=== PATIENT | male | born 1945 | race Native Hawaiian/Other Pacific Islander ===

== ENCOUNTER → 2016-09-18 | Outpatient (CLI) | payer MEDICARE, MEDICAID | LOC: YCFC.O 14:25 | PROVIDERS: ATTEND Anesthesiology Pain Medicine | DX: Z79.891 Long term (current) use of opiate analgesic (principal) | CPT/HCPCS: 80354; 80358; 80365; G0479 ==

== ENCOUNTER → 2016-09-19 | Outpatient (CLI) | payer MEDICARE, MEDICAID ==
--- NOTE | 2016-09-20 11:04 | RAD ---
EXAM DESCRIPTION: XR SHOULDER 2 OR MORE VIEWS CLINICAL HISTORY: FALL COMPARISON: None Available. TECHNIQUE: Two views bilateral FINDINGS: Examination of the left shoulder reveals acromioclavicular joint arthritis. Mild glenohumeral joint arthritis is observed. No fracture dislocation is seen. Examination of the right shoulder reveals elevation of the humeral head consistent with a rotator cuff tear. Acromioclavicular joint arthritis is observed. No fracture dislocation is seen. IMPRESSION: Degenerative changes are observed in both shoulders.No fracture dislocation is seen. Electronically signed by: Micah Kendrick MD 09/20/2016 11:01
--- NOTE | 2016-09-20 11:05 | RAD ---
EXAM DESCRIPTION: XR THORACIC SPINE 2 VIEWS CLINICAL HISTORY: THORACIC BACK PAIN COMPARISON: None. TECHNIQUE: Three-view FINDINGS: Mild anterior osteophyte formation is observed throughout the thoracic spine. Mild diffuse osteopenia is observed. The pedicles are intact. No compression injury is detected. IMPRESSION: Degenerative changes in osteopenia are observed. No fracturing is detected. Electronically signed by: Micah Kendrick MD 09/20/2016 11:03
--- NOTE | 2016-09-20 11:05 | RAD ---
EXAM DESCRIPTION: XR CERVICAL SPINE 2 - 3 VIEWS CLINICAL HISTORY: NECK PAIN COMPARISON: None Available. TECHNIQUE: AP/lateral/ open-mouth odontoid FINDINGS: The cervical vertebral bodies are in good AP alignment. Loss of disc height is observed at the C3-4-C5-6 and C6-7 levels. Diffuse anterior osteophyte formation is observed. No soft tissue swelling is observed. Posterior ligamentous calcification is observed in the neck. Diffuse facet joint arthritis is seen. The atlantoaxial junction and dens are normal. IMPRESSION: Degenerative changes are observed. No evidence of fracturing is seen. Electronically signed by: Micah Kendrick MD 09/20/2016 11:02
--- NOTE | 2016-09-21 09:36 | RAD ---
EXAM DESCRIPTION: XR SHOULDER 2 OR MORE VIEWS CLINICAL HISTORY: FALL COMPARISON: None Available. TECHNIQUE: Two views. FINDINGS: Acromioclavicular joint arthritis is observed. Glenohumeral joint degenerative changes are also observed. No fracture dislocation is seen. IMPRESSION: Degenerative changes are observed in the acromioclavicular joint and glenohumeral joint. Electronically signed by: Micah Kendrick MD 09/21/2016 09:34
== END ==
LOC: RAD 13:21
PROVIDERS: ATTEND Nurse Practitioner Family
DX: M54.2 Cervicalgia (principal); M54.6 Pain in thoracic spine; M12.812 Other specific arthropathies, not elsewhere classified, left shoulder; M12.811 Other specific arthropathies, not elsewhere classified, right shoulder; M85.88 Other specified disorders of bone density and structure, other site; W19.XXXA Unspecified fall, initial encounter

== ENCOUNTER → 2016-10-17 | Outpatient (CLI) | payer MEDICARE, MEDICAID | END | disposition home or self-care (01) | LOC: YCFC.O 13:59 | PROVIDERS: ATTEND Nurse Practitioner Family | DX: Z79.891 Long term (current) use of opiate analgesic (principal) | CPT/HCPCS: 80354; 80358; 80365; G0479 ==

== ENCOUNTER → 2016-11-14 | Outpatient (CLI) | payer MEDICARE, MEDICAID | END | disposition home or self-care (01) | LOC: YCFC.O 13:34 | PROVIDERS: ATTEND Anesthesiology Pain Medicine | DX: Z79.891 Long term (current) use of opiate analgesic (principal) ==

== ENCOUNTER → 2016-12-12 | Outpatient (CLI) | payer MEDICARE, MEDICAID | END | disposition home or self-care (01) | LOC: YCFC.O 13:57 | PROVIDERS: ATTEND Nurse Practitioner Family | DX: Z79.891 Long term (current) use of opiate analgesic (principal) ==

== ENCOUNTER → 2017-01-23 | Outpatient (CLI) | payer MEDICARE, MEDICAID | END | disposition home or self-care (01) | LOC: YCFC.O 14:41 | PROVIDERS: ATTEND Anesthesiology Pain Medicine | DX: Z79.891 Long term (current) use of opiate analgesic (principal) ==

== ENCOUNTER → 2017-02-20 | Outpatient (CLI) | payer MEDICARE, MEDICAID | LOC: YCFC.O 13:15 | PROVIDERS: ATTEND Anesthesiology Pain Medicine | DX: Z79.891 Long term (current) use of opiate analgesic (principal) ==

== ENCOUNTER → 2017-02-27 | Outpatient (CLI) | payer MEDICARE, MEDICAID | LOC: RESP 14:05 | PROVIDERS: ATTEND Nurse Practitioner Family | DX: R94.31 Abnormal electrocardiogram [ECG] [EKG] (principal) ==

== ENCOUNTER → 2017-04-03 | Outpatient (CLI) | payer MEDICARE, MEDICAID | END | disposition home or self-care (01) | LOC: YCFC.O 15:59 | PROVIDERS: ATTEND Anesthesiology Pain Medicine | DX: Z79.891 Long term (current) use of opiate analgesic (principal) ==

== ENCOUNTER → 2017-05-01 | Outpatient (CLI) | payer MEDICARE, MEDICAID | END | disposition home or self-care (01) | LOC: YCFC.O 14:45 | PROVIDERS: ATTEND Anesthesiology Pain Medicine | DX: Z79.891 Long term (current) use of opiate analgesic (principal) ==

== ENCOUNTER → 2017-05-29 | Outpatient (CLI) | payer MEDICARE, MEDICAID | END | disposition home or self-care (01) | LOC: YCFC.O 14:45 | PROVIDERS: ATTEND Anesthesiology Pain Medicine | DX: Z79.891 Long term (current) use of opiate analgesic (principal) ==

== ENCOUNTER → 2017-06-26 | Outpatient (CLI) | payer MEDICARE, MEDICAID | END | disposition home or self-care (01) | LOC: YCFC.O 15:11 | PROVIDERS: ATTEND Anesthesiology Pain Medicine | DX: Z79.891 Long term (current) use of opiate analgesic (principal) ==

== ENCOUNTER → 2017-07-23 | Outpatient (CLI) | payer MEDICARE, MEDICAID | END | disposition home or self-care (01) | LOC: YCFC.O 10:05 | PROVIDERS: ATTEND Anesthesiology Pain Medicine | DX: Z79.891 Long term (current) use of opiate analgesic (principal) ==

== ENCOUNTER → 2017-09-14 | Outpatient (CLI) | payer MEDICARE, MEDICAID | END | disposition home or self-care (01) | LOC: LAB.O 10:39 | PROVIDERS: ATTEND Family Medicine | DX: I10 Essential (primary) hypertension (principal); E11.9 Type 2 diabetes mellitus without complications ==

== ENCOUNTER → 2018-09-17 | Outpatient (CLI) | payer MEDICARE, MEDICAID ==
--- NOTE | 2018-09-17 16:27 | CT ---
EXAM DESCRIPTION: Chest w/o Contrast : Computed Tomography. CLINICAL HISTORY: 73 years Male CHEST PAIN COMPARISON: None. TECHNIQUE: Spiral-axial scans at 5 x 5 mm intervals through the lungs and thorax without IV contrast. 2.5 x 5 mm lung algorithm axial reconstructions. Coronal and sagittal 2.0 Mm reconstructions. Total Exam DLP: 533.76 mGy-cm. This exam was performed according to our departmental dose-optimization program which includes automated exposure control, adjustment of the mA and/or kV according to patient size and/or use of iterative reconstruction technique; to reduce radiation dose to as low as reasonably achievable (ALARA). Nodule measurements under 10 mm are given as mean value of 3 axes diameters. FINDINGS: Lungs and large airways: Bibasilar scattered groundglass densities and pleural parenchymal scarring. Also peripheral groundglass densities in the lingula with scarring. No nodules, measuring masses or large infiltrates. Pleural spaces: Scattered focal thickening bilaterally with no bilateral effusion or pneumothorax. Mediastinum and Yancy: Evaluation limited due to lack of IV contrast. Small nodes are unremarkable. Great vessels and Heart: Evaluation limited due to lack of IV contrast. Coronary artery calcifications. Atherosclerotic calcifications in the aortic arch and descending thoracic aorta. Ectasia of the thoracic aorta, distal aortic arch AP diameter is 4.2 cm and compresses the esophagus against the trachea. Proximal arch is 3.9 cm diameter. 3.5 cm diameter of the arch of the origin of the right innominate artery. Soft tissues of neck base, axillae, and chest wall: Evaluation limited due to lack of IV contrast. Small axillary nodes. No soft tissue masses. Upper abdomen: No free air or fluid in the included peritoneal space. Partially visualized cystic mass in the lateral right kidney. Air in the intrahepatic biliary tree. Spleen and adrenal glands are unremarkable. Osseous structures: Spondylosis at multiple levels of the thoracic spine. Arthrosis sternoclavicular joints. Bilateral moderate arthrosis glenohumeral joints. No blastic or lytic lesions. IMPRESSION: 1. Bilateral scattered groundglass densities are most likely not acute with no abnormal nodules or masses. More prominent in the bilateral lower lobes and peripheral left upper lobe. No definite infiltrates. 2. Ectasia of the abdominal aorta but no dissecting aneurysm. Focal enlargement of the proximal descending aorta is compressing the airway partially against the trachea. Electronically signed by: Guanako Person MD 09/17/2018 4:26 PM RN HOME CARE
== END ==
LOC: CT 10:32
PROVIDERS: ATTEND General Practice
DX: R07.9 Chest pain, unspecified (principal); I77.811 Abdominal aortic ectasia

== ENCOUNTER 2019-08-24 14:06 | Inpatient (IN) | payer MEDICARE, MEDICAID ==
--- NOTE | 2019-08-24 14:28 | ED.PDOC ---
History of Present Illness - General Time Seen by Provider: 08/24/19 14:12 Source: patient Exam Limitations: other - poor historian - History of Present Illness Initial Comments: 74-year-old male with a history of prostate cancer currently on hospice presents to the emergency department complaining of lower extremity swelling 1 week. He is complaining of diffuse pain all over and increased pain and bilateral lower extremities due to the swelling with SOB on exertion. He has a history of cancer of the prostate and is unsure if he had metastasis of this or secondary cancer but has had multiple abdominal surgeries and has a chronic Bryan catheter in. He reports that he has been on hospice for the last 4 months and cannot tell me any of his medications or what diagnosis put him on hospice. He is a very poor historian and is unable to give any further history details at this time. Allergies/Adverse Reactions: Allergies NO KNOWN ALLERGY Allergy (Verified 08/24/19 14:52) Home Medications: Ambulatory Orders Glipizide 5 mg PO DAILY #30 tab 08/05/16 Losartan Potassium 25 mg PO DAILY 08/05/16 metFORMIN HCL [Glucophage] 500 mg PO DAILY 08/05/16 Bicalutamide 50 mg PO DAILY 08/24/19 Finasteride 5 mg PO DAILY 08/24/19 Morphine Oral Concentrate [Roxanol Concentrate] 20 mg PO PRN PRN 08/24/19 Morphine Sulfate [Morphine Sulfate ER] 100 mg PO TID 08/24/19 Review of Systems - Review of Systems Constitutional: Denies: chills, fever EENTM: Denies: nose congestion, throat pain Respiratory: States: short of breath. Denies: cough Cardiology: States: edema - BLE. Denies: chest pain Gastrointestinal/Abdominal: Denies: nausea, vomiting Genitourinary: States: other - chronic bryan catheter. Denies: dysuria Musculoskeletal: States: muscle pain - BLE. Denies: back pain Skin: Denies: lesions, rash Neurological: States: weakness - generalized. Denies: headache, numbness Past Medical History (General) - Patient Medical History Hx Seizures: No Hx Stroke: No Hx Dementia: No Hx Asthma: No Hx of COPD: No Hx Cardiac Disorders: No Hx Congestive Heart Failure: No Hx Pacemaker: No Hx Hypertension: Yes Hx Thyroid Disease: No Hx Diabetes: Yes Hx Gastroesophageal Reflux: Yes Hx Renal Disease: No Hx Cancer: Yes - colon Hx of HIV: No Hx MRSA: No - Vaccination History Hx Tetanus, Diphtheria Vaccination: No Hx Influenza Vaccination: Yes - 2016 Hx Pneumococcal Vaccination: No - Social History Hx Tobacco Use: Yes Hx Chewing Tobacco Use: No Hx Alcohol Use: No Hx Substance Use: No Hx Substance Use Treatment: No Hx Depression: No Hx Physical Abuse: No Hx Emotional Abuse: No Hx Suspected Abuse: No - Female History Patient : No Family Medical History - Family History Mother Family History: Unknown Living Status: Physical Exam - Physical Exam General Appearance: Alert, Unkempt Eye Exam: bilateral normal, bilateral conjunctivae pale Ears, Nose, Throat: normal ENT inspection Neck: full range of motion, normal inspection Respiratory: no respiratory distress, no accessory muscle use, other - coarse BS Cardiovascular/Chest: tachycardia, irregularly irregular, other - 3+ pitting edema to BLE Peripheral Pulses: radial,right: 2+, radial,left: 2+, dorsalis pedis,right: 2+, dorsalis pedis,left: 2+ Gastrointestinal/Abdominal: normal bowel sounds, non tender, soft Back Exam: normal inspection, no CVA tenderness Extremity: swelling - from the feet to knees BLE, other - hyperesthesia to light touch BLE Neurologic: alert, depressed affect, other - Oriented x2. Answers some questions and follows commands. Generalized weakness but moves extremities without focal deficits. Skin Exam: warm/dry, pallor Comments: 08/24/19 15:19 EKG Assessment ONCE Vital Signs - 24 hr 08/24/19 08/24/19 14:27 14:28 Temperature 98 F Pulse Rate [ 112 H 112 H Pulse ox] Respiratory 22 22 Rate Blood Pressure 121/91 [R brachial] O2 Sat by Pulse 90 L Oximetry Progress - Progress Progress: 08/24/19 14:15 The patient was seen and evaluated by myself. He is a very poor historian and is unable to give any details about his current diagnoses leading to hospice or any of his medications. On review of his medical records in the computer I was able to find that he had a urinalysis done yesterday that showed a urinary tract infection and the culture is still pending. However there are not many records available and the majority of them are from September 2018 and before, is nothing more recent than this. We have attempted to contact the patient's hospice nurse and attempted to get further information. The patient has also contacted family members and hopefully they are on their way to the ER as well to help provide more information and clarify the current situation. 08/24/19 14:43 The patient's hospice nurse was contacted and states that the patient is currently on Cipro for his UTI. He has morphine as needed for pain and currently takes losartan and metformin. He is also on medication for his prostate as well. To her knowledge the patient's prostate cancer is the diagnosis that he is on hospice for. 08/24/19 1543: Discussed the patient's case with Shyla Worthington with the hospitalist service, agrees the plan for admission. 08/24/19 15:45 Patient recheck all lab and imaging results were discussed with the patient on a plan for treatment with IV Lasix, Lovenox and Cardizem along the plan for admission for continued evaluation and treatment. The patient has voiced understanding and agrees with the plan. 08/24/19 16:04 HR 109 after IV cardizem, will go ahead and dose with oral metoprolol as well and rocephin for pt UTI. Updated Shyla on pt status so far. If his HR stays below 120 after period of monitoring, agrees with plan for floor. 08/24/19 16:39 HR staying 100-120, BP stable and starting to diurese. 08/24/19 17:00 HR remains 100-120- will send to floor with tele. - Results/Orders Results/Orders: 08/24/19 15:30 EKG STAT 08/24/19 15:38 Telemetry ONCE 08/24/19 15:48 ED Intent to Admit Routine Laboratory Results - last 24 hr 08/24/19 14:38 WBC 4.8 RBC 3.59 L Hgb 10.7 L Hct 32.2 L MCV 89.6 MCH 29.8 MCHC 33.3 RDW 16.4 H Plt Count 275 MPV 7.6 Absolute Neuts (auto) 3.10 Absolute Lymphs (auto) 1.00 Absolute Monos (auto) 0.50 Absolute Eos (auto) 0.10 Absolute Basos (auto) 0.10 Neutrophils % 65.3 Lymphocytes % 21.3 Monocytes % 11.0 H Eosinophils % 1.2 Basophils % 1.2 PT 13.1 H INR 1.31 H PTT (SP) 28.5 Sodium 131 L Potassium 4.1 Chloride 97 L Carbon Dioxide 22 Anion Gap 16.1 BUN 21 H Creatinine 0.71 BUN/Creatinine Ratio 29.6 H Random Glucose 158 H Serum Osmolality 268.9 L Calcium 9.0 Magnesium 1.8 Creatine Kinase 96 CK-MB (CK-2) 3.5 CK-MB (CK-2) % Not Reportable Troponin I 0.03 B-Natriuretic Peptide 599.0 H* Chest XR Read by radiology and reviewed by myself: IMPRESSION: Enlarged heart with mild to moderate congestive heart failure. Bilateral perihilar and infrahilar atelectatic change versus infiltrate or pulmonary congestion. Findings increased when correlated with the prior study. Electronically signed by: Mili Villar MD 08/24/2019 3:09 PM [employer] Workstation: [id number] EKG 1527 :Interpreted by myself as atrial fibrillation with RVR rate 152 and a right bundle branch block. Normal axis. No ST elevation and nonspecific ST-T changes. When compared to his previous EKG from 02/27/17 the atrial fibrillation is new however the right bundle branch block was present at that time. Departure - Departure Clinical Impression: Atrial fibrillation with rapid ventricular response, Prostate cancer CHF (congestive heart failure) Qualifiers: Heart failure type: unspecified Heart failure chronicity: acute Qualified Code(s): I50.9 - Heart failure, unspecified UTI (urinary tract infection) Qualifiers: Urinary tract infection type: catheter-associated UTI Indwelling urinary catheter type: indwelling urethral catheter Encounter type: initial encounter Qualified Code(s): T83.511A - Infection and inflammatory reaction due to indwelling urethral catheter, initial encounter Time of Disposition: 15:57 Disposition: Admit Patient Condition: Fair Home Medications: Ambulatory Orders Glipizide 5 mg PO DAILY #30 tab 08/05/16 Losartan Potassium 25 mg PO DAILY 08/05/16 metFORMIN HCL [Glucophage] 500 mg PO DAILY 08/05/16 Bicalutamide 50 mg PO DAILY 08/24/19 Finasteride 5 mg PO DAILY 08/24/19 Morphine Oral Concentrate [Roxanol Concentrate] 20 mg PO PRN PRN 08/24/19 Morphine Sulfate [Morphine Sulfate ER] 100 mg PO TID 08/24/19 Decision To Admit - Decistion To Admit Decision to Admit Reason: Admit from ER Decision to Admit Date: 08/24/19 Decision to Admit Time: 15:30
--- NOTE | 2019-08-24 15:10 | RAD ---
EXAM DESCRIPTION: Chest,1 View CLINICAL HISTORY: 74 years Male LE swelling COMPARISON: August 05, 2016. TECHNIQUE: AP view of the chest was obtained. FINDINGS: Cardiac silhouette is enlarged. Central vessels are increased and indistinct. Elevation right hemidiaphragm. Bilateral perihilar and infrahilar airspace opacities bilaterally. Suspected small bilateral pleural effusions. No pneumothorax. IMPRESSION: Enlarged heart with mild to moderate congestive heart failure. Bilateral perihilar and infrahilar atelectatic change versus infiltrate or pulmonary congestion. Findings increased when correlated with the prior study. Electronically signed by: Mili Villar MD 08/24/2019 3:09 PM [facility]
[2019-08-24] MEDS ORDERED: FUROSEMIDE INJ 40 MG/4 ML VIAL IV ONE ×2 (15:38→23:00)
[2019-08-24] MEDS ORDERED: ENOXAPARIN SODIUM 100 MG/ML SYG SUBCU ONE (15:46)
[2019-08-24] MEDS ORDERED: METOPROLOL TARTRATE 25 MG TAB PO ONE (16:09)
[2019-08-24] MEDS ORDERED: cefTRIAXone SODIUM 1 GM in SODIUM CHL 0.9% 50ML MIN-BAG+ 50 ML IVPB ONE (16:10)
[2019-08-24] MEDS ORDERED: SODIUM CHL 0.9% 50ML MIN-BAG+ 50 ML IVPB ONE (16:12)
[2019-08-24] MEDS ORDERED: cefTRIAXone SODIUM 1 GM VIAL ONE (16:12)
--- NOTE | 2019-08-24 16:38 | HP ---
SUPERVISING PHYSICIAN: Ke Benjamin MD CHIEF COMPLAINT: Swelling in his lower legs with difficulty moving. HISTORY OF PRESENT ILLNESS: This is a 74-year-old male patient who is a poor historian. He has a history of prostate cancer that is on hospice. He presented to the Emergency Room complaining of lower extremity swelling that had been going on for about a week. He has diffuse pain all over that is different than his cancer pain. He said his skin was so tight he felt like it was going to bust. He also had a difficult time bending at his waist and a hard time sitting down. He does have a chronic Quinonez catheter. He has been on hospice for 4 months for cancer. He sees Dr. Davis in [place]. In the Emergency Room, he was given some Lasix and when he was put on the monitor, it was found that he was in atrial fibrillation. His heart rate kept going up into the 130s, but then it would go down in the 100s. He has never had a history of atrial fibrillation. His blood pressure did go up into the 130s and he was given 20 mg of Cardizem IV. He was also given some Rocephin as he recently been treated for a urinary tract infection. His initial vital signs were temperature 98, heart rate 112 to 130, blood pressure 121/91, respiratory rate 20, O2 saturation 90% on room air. Lab showed WBC 4,800, hemoglobin 10.7, hematocrit 32.2. Chemistry showed sodium 131, chloride 97, BUN 21, creatinine 0.71, glucose 183, BNP 599. He does not have a history of any congestive heart failure. Chest x-ray was done and showed enlarged heart with mild to moderate congestive heart failure, bilateral perihilar and infrahilar atelectasis changes versus infiltrate or pulmonary congestion. Findings increased when correlated with prior study. He was also given some metoprolol and I was called for hospital admission. PAST MEDICAL HISTORY: 1. Diabetes mellitus, type 2. 2. Prostate problems. 3. Liver cancer. 4. Benign prostatic hypertrophy. 5. Hypertension. 6. Gastroesophageal reflux disease. PAST SURGICAL HISTORY: 1. Abdominal surgery to his cancer. 2. Back surgery. 3. Brain surgery. OUTPATIENT MEDICATIONS: Per the EMR and awaiting verification. ALLERGIES: NO KNOWN DRUG ALLERGIES. SOCIAL HISTORY: He lives alone. He smokes about 5 cigarettes daily. He denies any ETOH or illicit drug use. REVIEW OF SYSTEMS: GENERAL: Negative for fever, fatigue or weight changes. HEENT: Negative for sinus symptoms, ear pain, vision changes or sore throat. RESPIRATORY: Negative for wheezing, coughing or shortness of breath. CARDIAC: Negative for chest pain, palpitations or tachycardia. EXTREMITIES: Positive for bilateral lower extremity edema that extends to his knee. He also feels like he has abdominal edema. GENITOURINARY: Positive for chronic Quinonez catheter. Negative for hematuria, dysuria or polyuria. MUSCULOSKELETAL: Negative for arthralgias, myalgias. SKIN: Negative for lesions or rashes. NEUROLOGIC: Positive for weakness. Negative for headache or seizures. PHYSICAL EXAMINATION: VITAL SIGNS: Temperature 98.1. Heart rate 115. Blood pressure 119/94. Respiratory rate 22. O2 saturation 94% on 2 liters nasal cannula. It did drop as low as 88%. GENERAL: This is a 74-year-old male patient who is lying in his hospital bed. He is in no acute distress. HEENT: Normocephalic, atraumatic. Pupils are equal and reactive. Oropharynx is clear. NECK: Supple without mass. RESPIRATORY: A few scattered crackles, but otherwise clear to auscultation. CHEST: There is equal rise and fall of the chest with inspiration and expiration. CARDIOVASCULAR: Tachycardic rate and irregular rhythm. Atrial fibrillation on the ekg monitor. GASTROINTESTINAL: Abdomen is soft, nondistended, nontender. Bowel sounds are positive. EXTREMITIES: +4 pedal edema that extend up to the knee. It is pitting and the skin is very tight. NEUROLOGIC: Awake, alert. Cranial nerves II-XII are grossly intact as tested. SKIN: Warm and dry. LABORATORY: Labs and films are as per history of present illness. IMPRESSION: 1. Atrial fibrillation with rapid ventricular response, new onset. 2. Lower extremity edema. 3. Recent urinary tract infection. 4. Elevated BNP with no known diagnosis of congestive heart failure. He also had cardiomegaly per chest x-ray. 5. Diabetes mellitus, type 2. 6. History of prostate cancer, on hospice care. PLAN: The patient has been admitted to the hospital. He is on a Cardizem drip at this time due to his uncontrolled atrial fibrillation with rapid ventricular response. I have ordered an echocardiogram for tomorrow and we will need to transition him to a beta zaire for rate control once his echocardiogram is complete. I have given him an extra dose of Lasix. We will start his home medications as soon as they are verified. I have also started him on Eliquis. He received a dose of Lovenox in the Emergency Room and he will need Eliquis for anticoagulation. I have continued Rocephin for his urinary tract infection. He will have lab and chest x-ray in the morning. We will continue his pain medications from hospice. He will be on blood sugar checks a.c. and h.s. with Humalog sliding scale coverage. We will continue to monitor the patient closely and follow as needed. #[id number] [facility]
[2019-08-24] MEDS ORDERED: ONDANSETRON INJ 4 MG/2 ML VIAL IV PRN (19:23)
[2019-08-24] MEDS ORDERED: SODIUM CHLORIDE 0.9% (FLUSH) 10 ML SYG IV PRN (19:23)
[2019-08-24] MEDS ORDERED: NITROGLYCERIN 0.4 MG 25 EA TAB SL PRN (19:23)
[2019-08-24] MEDS ORDERED: GLUCAGON INJ 1 MG VIAL SUBCU PRN (19:28)
[2019-08-24] MEDS ORDERED: DEXTROSE 50% 25 GM/50 ML SYG IV PRN (19:28)
[2019-08-24] MEDS ORDERED: IV SET AND CAP CHANGE INJ INJ SCH (19:30)
[2019-08-24] MEDS ORDERED: DEXTROSE 5% 100ML 100 ML IVPB ONE (20:14)
[2019-08-24] MEDS ORDERED: diltiaZEM DRIP 125 MG/25 ML VIAL IVPB ONE ×2 (20:15→20:20)
[2019-08-24] MEDS: SODIUM CHLORIDE 0.9% (FLUSH) 10 ML SYG IV SCH (20:20)
[2019-08-24] MEDS ORDERED: diltiaZEM DRIP 125 MG in SODIUM CHLORIDE 0.9% 100ML 100 ML IVPB SCH (20:30)
[2019-08-24] MEDS: MORPHINE SULFATE 100 MG PO SCH (20:48)
[2019-08-24] MEDS: INSULIN LISPRO 100 UNITS/ML PEN SUBCU SCH (20:53)
[2019-08-24] MEDS: APIXABAN 5 MG TAB PO SCH (21:40)
[2019-08-24] MEDS ORDERED: FUROSEMIDE INJ 40 MG/4 ML VIAL ONE (22:40)
[2019-08-24] MEDS: MORPHINE 20 MG/ML PO PRN (22:52)
[2019-08-25] MEDS: MORPHINE 20 MG/ML PO PRN ×3 (03:35→23:23)
[2019-08-25] MEDS: MORPHINE SULFATE 100 MG PO SCH ×4 (06:32→21:01)
[2019-08-25] MEDS: INSULIN LISPRO 100 UNITS/ML PEN SUBCU SCH ×4 (07:20→21:00)
--- NOTE | 2019-08-25 07:38 | RAD ---
EXAM DESCRIPTION: Chest,1 View CLINICAL HISTORY: afib; chf COMPARISON: August 24, 2019 IMPRESSION: Single AP portable upright view of the chest shows enlargement of the cardiac silhouette with mild pulmonary vascular congestion similar to previous exam. Moderate tortuosity the thoracic aorta is stable. Lungs remain hypoaerated with elevation of the right hemidiaphragm. No acute infiltrate or consolidation is seen. Suspect small bilateral pleural effusion similar to previous exam. No pneumothorax. Electronically signed by: Medhat Cuevas MD 08/25/2019 7:36 AM [employer]
[2019-08-25] MEDS ORDERED: SODIUM CHL 0.9% 50ML MIN-BAG+ 50 ML IVPB ONE (08:24)
[2019-08-25] MEDS ORDERED: cefTRIAXone SODIUM 1 GM VIAL ONE (08:25)
[2019-08-25] MEDS: FINASTERIDE 5 MG TAB PO SCH (09:10)
[2019-08-25] MEDS: LOSARTAN POTASSIUM 25 MG TAB PO SCH (09:10)
[2019-08-25] MEDS: metFORMIN HCL 500 MG TAB PO SCH (09:10)
[2019-08-25] MEDS: glipiZIDE 5 MG TAB PO SCH (09:10)
[2019-08-25] MEDS: cefTRIAXone SODIUM 1 GM in SODIUM CHL 0.9% 50ML MIN-BAG+ 50 ML IVPB SCH (09:11)
[2019-08-25] MEDS ORDERED: DEXTROSE 10% 500ML IVPB PRN (11:00)
[2019-08-25] MEDS: APIXABAN 5 MG TAB PO SCH ×2 (11:16→21:00)
[2019-08-25] MEDS: METOPROLOL TARTRATE 25 MG TAB PO SCH ×2 (11:16→16:41)
[2019-08-25] MEDS: BICALUTAMIDE 50 MG PO SCH (11:17)
[2019-08-25] MEDS: SODIUM CHLORIDE 0.9% (FLUSH) 10 ML SYG IV SCH ×2 (11:51→21:02)
[2019-08-25] MEDS ORDERED: METOPROLOL TARTRATE INJ 5 MG/5 ML VIAL IV ONE ×2 (17:15→23:45)
--- NOTE | 2019-08-25 21:18 | PN ---
DATE: 08/25/19 SUPERVISING PHYSICIAN: Julius Cain M.D. SUBJECTIVE: The patient is resting comfortably. Still having some tachycardia. I did initiate a beta zaire and he is showing to be stable, but not a controlled rate at this point. OBJECTIVE: VITAL SIGNS: Temperature 97.6, pulse is ranging anywhere from 80 to 124, blood pressure 125/85, respirations 20, satting 94% on 1 liter nasal cannula. I's and O's are showing a negative balance of 3650. GENERAL: The patient is resting comfortably in the bedside chair. He is alert. Does not appear to be in any acute distress. CHEST: Lung sounds are fairly clear throughout, just diminished towards the bases. HEART: Slightly irregular rate and rhythm but tachycardic. EXTREMITIES: Show continued edema but improved from admission. GENITOURINARY: Quinonez catheter remains in place. NEUROLOGIC: He is still having some overall weakness but no focal motor deficits. He is alert and oriented times three. LABORATORY: White count 4,800, hemoglobin and hematocrit are showing to be stable at 10.1 and 30.2 respectively with differential showing to be without a left shift. Chemistries show a slightly improved sodium at 133, potassium remains normal at 3.8, BUN 8.3. Blood sugar ranges between 92 and 183. Liver functions all within normal limits. Magnesium 1.9. RADIOLOGY: Chest x-ray single view chest this morning per radiology interpretation shows hypoaerated lungs with elevation of the right hemidiaphragm but no acute infiltrate or consolidations. Continues to be suspected small bilateral pleural effusion. No significant changes from previous. ASSESSMENT: 1. Atrial fibrillation with continued rapid ventricular response, now started on a beta zaire, but showing improving rate. 2. Lower extremity edema secondary to congestive heart failure. 3. Congestive heart failure with a moderately reduced ejection fraction as noted on echocardiogram on 08/25 with an ejection fraction reported to be 35 to 40% with an elevated BNP on admission with some exacerbation secondary to #1. 4. Diabetes mellitus type 2, controlled. 5. Recent urinary tract infection with culture showing a preliminary gram negative bacilli with Quinonez catheter chronic but replaced prior to admission with final cultures pending with the patient currently on Rocephin. 6. History of prostate cancer, on hospice care. PLAN: Will continue to work to get a rate control. I have added a beta zaire to him, metoprolol at 25 mg b.i.d. Will utilize IV push as needed. He is on Rocephin for coverage of the urinary tract infection. He remains on Lasix for diuresis. He is also on Eliquis for deep venous thrombosis prophylaxis. He continues on pain management per hospice. He continues to be on sliding scale per protocol. Hopefully will get control of his rate overnight on beta zaire and if showing to be stable, hopefully be able to discharge either tomorrow or the next. Until then will continue to monitor and treat as needed. #[id number] [facility]
[2019-08-25] MEDS ORDERED: FUROSEMIDE INJ 40 MG/4 ML VIAL IV ONE (22:30)
[2019-08-26] MEDS: MORPHINE 20 MG/ML PO PRN (02:00)
[2019-08-26] MEDS ORDERED: SODIUM CHL 0.9% 50ML MIN-BAG+ 50 ML IVPB ONE (08:36)
[2019-08-26] MEDS ORDERED: METOPROLOL TARTRATE 50 MG TAB ONE (08:37)
[2019-08-26] MEDS ORDERED: cefTRIAXone SODIUM 1 GM VIAL ONE (08:38)
[2019-08-26] MEDS: MORPHINE SULFATE 100 MG PO SCH ×3 (09:30→21:30)
[2019-08-26] MEDS: FINASTERIDE 5 MG TAB PO SCH (09:31)
[2019-08-26] MEDS: APIXABAN 5 MG TAB PO SCH ×2 (09:31→21:30)
[2019-08-26] MEDS: glipiZIDE 5 MG TAB PO SCH (09:31)
[2019-08-26] MEDS: metFORMIN HCL 500 MG TAB PO SCH (09:31)
[2019-08-26] MEDS: LOSARTAN POTASSIUM 25 MG TAB PO SCH (09:32)
[2019-08-26] MEDS: cefTRIAXone SODIUM 1 GM in SODIUM CHL 0.9% 50ML MIN-BAG+ 50 ML IVPB SCH (09:33)
[2019-08-26] MEDS: SODIUM CHLORIDE 0.9% (FLUSH) 10 ML SYG IV SCH ×2 (09:34→22:00)
[2019-08-26] MEDS: METOPROLOL TARTRATE 50 MG TAB PO SCH ×2 (09:41→17:27)
[2019-08-26] MEDS: BICALUTAMIDE 50 MG PO SCH (09:41)
[2019-08-26] MEDS: INSULIN LISPRO 100 UNITS/ML PEN SUBCU SCH ×4 (09:46→22:02)
[2019-08-27] MEDS: MORPHINE 20 MG/ML PO PRN (01:59)
[2019-08-27] MEDS: INSULIN LISPRO 100 UNITS/ML PEN SUBCU SCH ×2 (07:19→11:40)
[2019-08-27] MEDS ORDERED: SODIUM CHL 0.9% 50ML MIN-BAG+ 50 ML IVPB ONE (07:33)
[2019-08-27] MEDS ORDERED: cefTRIAXone SODIUM 1 GM VIAL ONE (07:34)
[2019-08-27] MEDS: BICALUTAMIDE 50 MG PO SCH (08:27)
[2019-08-27] MEDS: FINASTERIDE 5 MG TAB PO SCH (08:27)
[2019-08-27] MEDS: METOPROLOL TARTRATE 50 MG TAB PO SCH (08:27)
[2019-08-27] MEDS: metFORMIN HCL 500 MG TAB PO SCH (08:27)
[2019-08-27] MEDS: MORPHINE SULFATE 100 MG PO SCH ×2 (08:27→15:06)
[2019-08-27] MEDS: LOSARTAN POTASSIUM 25 MG TAB PO SCH (08:28)
[2019-08-27] MEDS: glipiZIDE 5 MG TAB PO SCH (08:28)
[2019-08-27] MEDS: APIXABAN 5 MG TAB PO SCH (08:28)
[2019-08-27] MEDS: SODIUM CHLORIDE 0.9% (FLUSH) 10 ML SYG IV SCH (08:28)
[2019-08-27] MEDS: cefTRIAXone SODIUM 1 GM in SODIUM CHL 0.9% 50ML MIN-BAG+ 50 ML IVPB SCH (08:29)
--- NOTE | 2019-08-27 10:16 | PN ---
SUPERVISING PHYSICIAN: Julius Cain M.D. DATE: 08/26/19 SUBJECTIVE: The patient continues to do fairly well. He is not having any complaints. He is still a little tachycardic, but has no chest pains. He still has a little edema to his lower extremities, but notes it is much better than when he was admitted. OBJECTIVE: VITAL SIGNS: He remains afebrile with temperature 98.5. Pulse 94. Blood pressure 120/87. Respirations 20. Saturation 96% on 2 liters nasal cannula. Weight 104.7 kg. GENERAL: The patient is resting comfortably. He appears to be in no acute distress. CHEST: Lung sounds are fairly clear, just diminished towards the bases. HEART: Regular rate and rhythm, showing mild tachycardia between 100 to 105. EXTREMITIES: Continued 1+ edema bilaterally. GENITOURINARY: Quinonez catheter remains in place with no complications. NEUROLOGIC: He is alert and oriented times 3. LABORATORY: Blood sugars are ranging between 92 and 216. ASSESSMENT: 1. Atrial fibrillation with continued rapid ventricular response, now started on a beta zaire, but showing improving rate. 2. Lower extremity edema secondary to congestive heart failure. 3. Congestive heart failure with a moderately reduced ejection fraction as noted on echocardiogram on 08/25/19 with an ejection fraction reported to be 35 to 40% with an elevated BNP on admission with some exacerbation secondary to #1. 4. Diabetes mellitus, type 2, controlled. 5. Recent urinary tract infection with culture showing a preliminary gram negative bacilli with Quinonez catheter chronic but replaced prior to admission with final cultures pending with the patient currently on Rocephin. 6. History of prostate cancer, on hospice care. PLAN: We will continue with beta zaire and increase his metoprolol to 50 mg b.i.d. He has been fairly well controlled. He is diuresing well and remains on Eliquis for thrombolytic prophylaxis. I would anticipate if he continues to be controlled overnight and remains stable, he should be able to discharge back home. Until then, we will continue to monitor and treat as needed. #[id number] [facility]
[2019-08-27 15:32] VITALS: BP 141/75; TEMP 97; O2SAT 95
--- NOTE | 2019-08-29 09:53 | DS ---
SUPERVISING PHYSICIAN: Arlette Cain MD DISCHARGE DIAGNOSIS: 1. Atrial fibrillation with continued rapid ventricular response, now started on a beta zaire, but showing improving rate. 2. Lower extremity edema secondary to congestive heart failure. 3. Congestive heart failure with a moderately reduced ejection fraction as noted on echocardiogram on 08/25/19 with an ejection fraction reported to be 35 to 40% with an elevated BNP on admission with some exacerbation secondary to #1. 4. Diabetes mellitus, type 2, controlled. 5. Recent urinary tract infection with culture showing a preliminary gram negative bacilli with Quinonez catheter chronic but replaced prior to admission with final cultures pending with the patient currently on Rocephin. 6. History of prostate cancer, on hospice care. HISTORY OF PRESENT ILLNESS: This is a 74-year-old male patient who presented to the Emergency Room due to swelling in his lower legs. It had been going on for about a week. He is a poor historian. He has a history of prostate cancer on hospice. He had diffuse pain all over that he said was different than his cancer pain. He said his skin was so tight he felt like it was going to bust. He also had a difficult time bending at his waist and a hard time sitting down due to the swelling. He has a chronic Quinonez catheter. He has been on hospice for 4 months for cancer. He sees Dr. Davis in [place]. In the Emergency Room, he was given some Lasix and when he was put on the monitor, it was found that he was in atrial fibrillation with a tachycardic rate. It eventually went up to the 130s, but then it would go down in the 100s. He does not have a history of atrial fibrillation. His heart rate did go up into the 130s and he was given 20 mg of Cardizem. He also has had a recent urinary tract infection and was also given some Rocephin. His initial vital signs were temperature 98, heart rate 112 to 130s, blood pressure 121/91, respiratory rate 20, O2 saturation 90% on room air. Lab showed WBC 4,800, hemoglobin 10.7, hematocrit 32.2. Chemistry showed sodium 131, chloride 97, BUN 21, creatinine 0.71, glucose 183, BNP 599. He does not have a history of any congestive heart failure. Chest x-ray was done and showed enlarged heart with mild to moderate congestive heart failure, bilateral perihilar and infrahilar atelectasis changes versus infiltrate or pulmonary congestion. Findings were increased when correlated with prior study. He was also given some metoprolol and was admitted to the hospital. HOSPITAL COURSE: He was placed on a Cardizem drip initially as they were unable to control his rate with or oral beta blockers or with Cardizem IV push. An echocardiogram was also ordered. He is on an ARB, but was later placed on a beta zaire after he was off the drip. He was given an extra dose of Lasix and his home medications were restarted. He was not on any anticoagulant therapy and received some Lovenox in the Emergency Room. He was started on Eliquis after he was admitted. He was also placed on blood sugar checks a.c. and h.s. with sliding scale Humalog coverage. His rate was mostly controlled and his hospice medications were restarted for pain control. His blood pressure remained stable. His heart rate remained controlled. He was titrated up to metoprolol tartrate 50 mg b.i.d. He diuresed well. He will be discharged home today in stable condition. LABORATORY: His CBC remained unremarkable and was mostly unchanged from his admission. His blood sugars ran between 89 and 216. His initial sodium was 131 and came up to 133. Potassium 3.8, chloride 96, carbon dioxide 27, BUN 20, creatinine 0.83, calcium 8.8, magnesium 1.9. AST 36, ALT 63, alkaline phosphatase 171. BNP 599 with troponin 0.03. ECHOCARDIOGRAM: 1) Moderately reduced left ventricular function, visually estimated ejection fraction of 35% to 40% with a moderate global hypokinesis, moderate left ventricular dilation. 2) Severe biatrial enlargement. 3) Moderate right ventricular dilation with moderately decreased systolic function. 4) Mild aortic valve regurgitation. 5) Moderate to severe mitral valve regurgitation. 6) Moderate tricuspid valve regurgitation. 7) Trivial posterior pericardial effusion. RADIOLOGY: Single AP portable upright view of the chest shows enlargement of the cardiac silhouette with mild pulmonary vascular congestion, similar to previous exam, moderate tortuosity of the thoracic aorta stable. Lungs remain hypo-aerated with elevation of the right hemidiaphragm. No acute infiltrate or consolidation seen. Suspect small bilateral pleural effusions, similar to previous exam. No pneumothorax. DISCHARGE PLAN: The patient will be discharged home in stable condition. He will continue with [facility] with in-home services. His condition is fair. He is to resume his previous diet and increase his activity as tolerated. He is to followup with Dr. Damon in 1 to 2 weeks. He is to continue his previous home medications with the addition of Eliquis 5 mg p.o. b.i.d. and metoprolol tartrate 50 mg p.o. b.i.d. He is to return to the hospital or followup with Dr. Damon for any problems or complications. DISCHARGE MEDICATIONS: 1. Metformin. 2. Losartan. 3. Glipizide. 4. Morphine sulfate ER. 5. Bicalutamide. 6. Morphine oral concentrate. 7. Finasteride. 8. Seroquel. 9. Eliquis. 10. Metoprolol. #[id number] [facility]
== END 2019-08-27 16:20 | disposition hospice, home (50) | DRG 291 ==
LOC: ER 14:06 → MS 16:37 → OBSVTOIN 16:37
PROVIDERS: ADMIT Nurse Practitioner Acute Care; ATTEND Nurse Practitioner Acute Care
DX: I11.0 Hypertensive heart disease with heart failure (principal); I50.21 Acute systolic (congestive) heart failure; I48.91 Unspecified atrial fibrillation; G89.3 Neoplasm related pain (acute) (chronic); C61 Malignant neoplasm of prostate; E11.9 Type 2 diabetes mellitus without complications; I08.3 Combined rheumatic disorders of mitral, aortic and tricuspid valves; N40.0 Benign prostatic hyperplasia without lower urinary tract symptoms; K21.9 Gastro-esophageal reflux disease without esophagitis; F17.210 Nicotine dependence, cigarettes, uncomplicated; Z87.440 Personal history of urinary (tract) infections; Z79.891 Long term (current) use of opiate analgesic; Z79.84 Long term (current) use of oral hypoglycemic drugs; Z79.899 Other long term (current) drug therapy; Z96.0 Presence of urogenital implants

== ENCOUNTER 2019-09-10 17:10 | Inpatient (IN) | payer MEDICARE, MEDICAID ==
[2019-09-10] MEDS ORDERED: FUROSEMIDE INJ 40 MG/4 ML VIAL IV ONE (17:54)
[2019-09-10] MEDS ORDERED: METOPROLOL TARTRATE 50 MG TAB PO ONE (17:54)
--- NOTE | 2019-09-10 18:20 | RAD ---
EXAM DESCRIPTION: XR Chest,1 View CLINICAL HISTORY: 74 years Male, fluid overload COMPARISON: August 25, 2019. FINDINGS: Heart size appears slightly prominent, even allowing for technique. There is atherosclerotic change in the thoracic aorta. Slight patient rotation to the left. Note is again made of prominence of pulmonary vascular and interstitial markings, most pronounced in the medial right lung base. These findings appear essentially unchanged compared to the previous study except for questionable minimal improvement in the left upper lung field. No evidence of gross alveolar pulmonary edema. No gross pleural effusion identified on this portable upright examination. Note is again made of relative elevation or eventration of the right hemidiaphragm. Slight chronic changes are noted in the shoulders. Bony structures in general are not well evaluated on this exam. IMPRESSION: Findings consistent with chronic interstitial congestive changes, with asymmetrically prominent markings in the medial right base. Electronically signed by: Parth Stout MD 09/10/2019 6:18 PM [facility]
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
--- NOTE | 2019-09-10 19:46 | HP ---
SUPERVISING PHYSICIAN: Chucky Osuna MD CHIEF COMPLAINT: Lower extremity edema that extends to his abdomen. HISTORY OF PRESENT ILLNESS: This is a 74-year-old male who has a history of liver and prostate cancer and is actually on [facility] care. He came in for complaints of lower extremity swelling that actually has been going on for a little over a week. He was recently diagnosed with congestive heart failure and he has an ejection fraction 35% to 40% with diastolic and systolic dysfunction. He was also in the hospital a week or so ago with new onset of atrial fibrillation with rapid ventricular response. He also has a Quinonez catheter and it has actually been clogged off for a few days. He has to have it irrigated quite frequently. He stopped taking his medicines because of the catheter being clogged off. In the Emergency Room, his vital signs initially were temperature 95.5, heart rate 115. His heart rate did go down to the 80s and then up to the 120s. In the Emergency Room, he was in atrial fibrillation. He also had lower extremity edema that extended up into his groin and actually had ascites. He had difficulty ambulating. He actually could not even get up and get his medicines on the morning prior to admission. He is also a diabetic. He did have some shortness of breath. His oxygen saturations dropped to 84% when he was lying flat and had to be sitting upright. He also would easily get tachypneic and was significantly short of breath. His laboratory studies showed CBC mostly unremarkable. Chemistry showed sodium 132, potassium 3.4, chloride 92, BUN 24, creatinine 0.7. Serum osmolality 271.9, glucose 159. His initial lactic acid was 2.6, bilirubin 2.7, alkaline phosphatase 196. BNP 1360. His Quinonez catheter was replaced and he was given 40 mg of Lasix IV. He had also been treated recently for a urinary tract infection and, again, he had a urinary tract infection with large amount of urine blood, small amount of urine bilirubin, 2.0 urobilinogen, trace of urine leukocyte esterase, too numerous to count RBCs and 5 to 10 urine WBCs. Chest x-ray showed findings consistent with chronic interstitial congestive changes with asymmetrical prominent markings in the medial right base. I was called for hospital admission. PAST MEDICAL HISTORY: 1. Diabetes mellitus, type 2. 2. Prostate problems. 3. Liver cancer. 4. Prostate cancer. 5. Benign prostatic hypertrophy. 6. Hypertension. 7. Gastroesophageal reflux disease. 8. Congestive heart failure with an ejection fraction or 35% to 40% with systolic and diastolic dysfunction. His echocardiogram was on 08/25/19. PAST SURGICAL HISTORY: 1. Multiple abdominal surgeries due to his cancer. 2. Back surgery. 3. Brain surgery. OUTPATIENT MEDICATIONS: Per the EMR and awaiting verification. ALLERGIES: NO KNOWN DRUG ALLERGIES. SOCIAL HISTORY: He lives alone. He smokes about 5 cigarettes a day. He denies any ETOH or illicit drug use. REVIEW OF SYSTEMS: GENERAL: Positive for fatigue and weight changes. Negative for fever and chills. HEENT: Negative for sinus symptoms, ear pain, vision changes or sore throat. RESPIRATORY: Positive for shortness of breath. Negative for wheezing, coughing. CARDIAC: Negative for chest pain, palpitations or tachycardia. GASTROINTESTINAL: Positive for abdominal swelling. Negative for nausea, vomiting, diarrhea, constipation. GENITOURINARY: Positive for problems with his Quinonez catheter. He has had to have it changed frequently due to it clogging off. He also has to do self- irrigating of his catheter to keep it from clogging off. Negative for hematuria, dysuria or polyuria. MUSCULOSKELETAL: Positive for bilateral lower extremity edema that extends up to his abdomen. SKIN: Negative for lesions or rashes. NEUROLOGIC: Positive for weakness. Negative for headaches or seizures. PHYSICAL EXAMINATION: VITAL SIGNS: Temperature 98.3. Heart rate 106. Blood pressure 105/79. Respiratory rate 24. O2 saturation 96% on 2 liters nasal cannula. GENERAL: This is a 74-year-old male patient how is lying in his hospital bed. He is in mild respiratory distress. HEENT: Normocephalic, atraumatic. Pupils are equal and reactive. Oropharynx is clear. NECK: Supple without mass. RESPIRATORY: Scattered crackles throughout and somewhat diminished at the bases. The patient has to sit in an upright position due to his shortness of breath. He speaks in 2 to 3 word phrases. At rest, his respiratory rate is about 18 to 22. With talking or any exertion, his respiratory rate goes up to the mid to upper 20s. CHEST: There is equal rise and fall of the chest with inspiration and expiration. CARDIOVASCULAR: Regular to tachycardic rate and irregular rhythm. Atrial fibrillation on the manager monitoring. GASTROINTESTINAL: Abdomen is soft. There is noticeable ascites over the entire abdomen. It is nontender. Bowel sounds are positive. EXTREMITIES: There is pitting edema that extends all the way up to the groin as well as to the abdomen. The skin is very tight. Bilateral pedal pulses are +1. NEUROLOGIC: Awake, alert and oriented times three. Cranial nerves II-XII are grossly intact as tested. SKIN: Warm and dry. LABORATORY: Labs are as per history of present illness. IMPRESSION: 1. Acute exacerbation of congestive heart failure with systolic and diastolic dysfunction. His ejection fraction is 35% to 40% per echocardiogram on 08/25/19. BNP is also 1360. 2. Edema to the lower extremities that extends up to the groin as well as ascites. He has been unable to take most of his medications. 3. Atrial fibrillation with rapid ventricular response. His heart rate from the upper 90s to the 140s. He is on metoprolol and it is clear whether he was taken his medications. 4. History of recent urinary tract infection. He was recently treated at his last hospitalization. Species was Morganella morganii. It was treated and sensitive to Rocephin. 5. Diabetes mellitus, type 2. 6. History of prostate cancer as well as liver cancer. He is presently on [facility] Care. PLAN: The patient has been placed in observation. We will aggressively diurese him overnight. His Quinonez catheter has been changed. We will also monitor his heart rate closely. I am not sure he has been taking his medications as prescribed due to his immobility due to the swelling. He will be on Lasix IV and reevaluate him in the morning. I have also started him on sliding scale insulin protocol. He is on Eliquis and will continue that. I will continue the remainder of his home medications as soon as they are verified. Depending on his response, we may change to a full admission in the morning. We will continue to monitor the patient closely and follow as needed. #[id number] [facility]
[2019-09-10] MEDS ORDERED: NITROGLYCERIN 0.4 MG 25 EA TAB SL PRN (20:50)
[2019-09-10] MEDS ORDERED: ONDANSETRON INJ 4 MG/2 ML VIAL IV PRN (20:50)
[2019-09-10] MEDS ORDERED: SODIUM CHLORIDE 0.9% (FLUSH) 10 ML SYG IV PRN (20:50)
[2019-09-10] MEDS ORDERED: HYDROcodone 5MG/APAP 325MG 1 EA TAB PO PRN (21:06)
[2019-09-10] MEDS: metFORMIN HCL 500 MG TAB PO SCH (22:27)
[2019-09-10] MEDS: SODIUM CHLORIDE 0.9% (FLUSH) 10 ML SYG IV SCH (22:28)
[2019-09-10] MEDS: APIXABAN 5 MG TAB PO SCH (22:28)
[2019-09-10] MEDS: METOPROLOL TARTRATE 50 MG TAB PO SCH (22:29)
[2019-09-10] MEDS: IV SET AND CAP CHANGE INJ INJ SCH (22:46)
[2019-09-11] MEDS ORDERED: LOSARTAN POTASSIUM 100 MG TAB ONE (07:27)
--- NOTE | 2019-09-11 07:30 | RAD ---
EXAM DESCRIPTION: Chest,1 View CLINICAL HISTORY: CHF COMPARISON: September 10, 2019 IMPRESSION: Single AP portable upright view of the chest shows enlargement of cardiac silhouette with mild prominence of the pulmonary vascularity similar to previous. Elevation of the right hemidiaphragm is again seen with crowding of bronchovascular markings in the right hilar region. Left costophrenic angle is not included in [id number]. No new infiltrates or consolidations are seen. No obvious pleural effusion or pneumothorax.. Electronically signed by: Medhat Cuevas MD 09/11/2019 7:28 AM [facility]
[2019-09-11] MEDS ORDERED: METOPROLOL TARTRATE INJ 5 MG/5 ML VIAL IV ONE (07:40)
[2019-09-11] MEDS: LOSARTAN POTASSIUM 25 MG TAB PO SCH (07:58)
[2019-09-11] MEDS: metFORMIN HCL 500 MG TAB PO SCH ×2 (07:58→16:54)
[2019-09-11] MEDS: FINASTERIDE 5 MG TAB PO SCH (07:58)
[2019-09-11] MEDS: APIXABAN 5 MG TAB PO SCH ×2 (07:58→20:20)
[2019-09-11] MEDS: METOPROLOL TARTRATE 50 MG TAB PO SCH ×2 (07:58→20:20)
[2019-09-11] MEDS: SODIUM CHLORIDE 0.9% (FLUSH) 10 ML SYG IV SCH ×2 (08:03→20:23)
[2019-09-11] MEDS: FUROSEMIDE INJ 40 MG/4 ML VIAL IV SCH ×2 (08:04→16:54)
[2019-09-11] MEDS: BICALUTAMIDE 50 MG PO SCH (08:04)
[2019-09-11] MEDS ORDERED: DEXTROSE 10% 500ML IVPB PRN (08:18)
[2019-09-11] MEDS ORDERED: GLUCAGON INJ 1 MG VIAL SUBCU PRN (08:18)
[2019-09-11] MEDS: INSULIN LISPRO 100 UNITS/ML PEN SUBCU SCH ×4 (08:43→21:11)
[2019-09-11] MEDS ORDERED: SODIUM CHL 0.9% 50ML MIN-BAG+ 50 ML IVPB ONE (08:44)
[2019-09-11] MEDS ORDERED: cefTRIAXone SODIUM 1 GM VIAL ONE (08:44)
[2019-09-11] MEDS: cefTRIAXone SODIUM 1 GM in SODIUM CHL 0.9% 50ML MIN-BAG+ 50 ML IVPB SCH (09:21)
[2019-09-11] MEDS ORDERED: MORPHINE SULFATE 100 MG PO PRN (09:54)
[2019-09-11] MEDS ORDERED: MORPHINE ER 30 MG TAB ONE (10:05)
[2019-09-11] MEDS: MORPHINE ER 30 MG TAB PO PRN ×3 (10:20→23:47)
[2019-09-11] MEDS ORDERED: FUROSEMIDE INJ 40 MG/4 ML VIAL IV ONE (12:07)
--- NOTE | 2019-09-11 12:21 | US ---
EXAM DESCRIPTION: Abdomen,Limited CLINICAL HISTORY: ascites COMPARISON: None Available. TECHNIQUE: Limited evaluation of the four quadrants of the abdomen for ascites FINDINGS: The left upper quadrant, small amount of fluid is seen around the spleen consistent with a small volume of ascites. The right upper quadrant, no significant fluid around the liver. Lower quadrant are also evaluated with no significant fluid accumulation in these regions. IMPRESSION: Small amount of ascites in the left upper quadrant. Electronically signed by: Rosas Carrion MD 09/11/2019 12:20 PM [facility]
[2019-09-11] MEDS ORDERED: MELATONIN 3 MG TAB ONE (18:59)
[2019-09-11] MEDS ORDERED: QUEtiapine FUMARATE 25 MG TAB ONE (18:59)
[2019-09-11] MEDS: QUEtiapine FUMARATE 25 MG TAB PO SCH (20:20)
[2019-09-11] MEDS: MELATONIN 3 MG TAB PO SCH (20:20)
--- NOTE | 2019-09-11 20:42 | PN ---
DATE: 09/11/19 SUPERVISING PHYSICIAN: Chucky Osuna M.D. SUBJECTIVE: The patient is lying in bed. Still feels rather weak as well as short of breath, although the edema has improved. It was reported this morning that he was in atrial fibrillation with rapid ventricular response with heart rates that were up to the 150s. There was no chest pain at that time, although he continues to be occasionally short of breath. Lopressor IV was given and his heart rate improved. OBJECTIVE: VITAL SIGNS: Temperature 97, heart rate 105, blood pressure 125/79, respiratory rate 20 to 24, O2 saturation is 94% on 2 liters nasal cannula. RESPIRATORY: Scattered crackles throughout, diminished at the bases. He does get slightly tachypneic with any exertion. He does have to have his head elevated due to lying flat makes him extremely short of breath. CARDIAC: Tachycardic rate, irregular rhythm. Atrial fibrillation on the registered nurse cardiac. GASTROINTESTINAL: Abdomen is soft, nondistended, non-tender. Bowel sounds are positive. He does have some ascites from the umbilicus down to his lower extremities. EXTREMITIES: No cyanosis or clubbing. Again, he has edema from his feet up to his med abdomen. It has improved since yesterday. NEUROLOGIC: He is awake, alert and oriented times three. LABORATORY: WBCs are 5.5 with hemoglobin 11, hematocrit 33.5. Sodium 133, potassium 3.8, chloride 95, carbon dioxide 27, BUN 24, creatinine 0.72. Blood sugars have run between 135 and 177. Repeat lactic acid was 1.9, magnesium 2. Alkaline phosphatase 182. Urine cultures are pending. Abdominal ultrasound shows small amount of ascites in the left upper quadrant. All other labs and films have been reviewed via the EMR. ASSESSMENT: 1. Acute exacerbation of congestive heart failure with systolic and diastolic dysfunction. His ejection fraction is 35% to 40% per echocardiogram on 08/25/19. BNP is also 1360. 2. Edema to the lower extremities that extends up to the groin as well as ascites. He has been unable to take most of his medications. 3. Atrial fibrillation with rapid ventricular response. His heart rate from the upper 90s to the 140s. He is on metoprolol and it is clear whether he was taken his medications. 4. Urinary tract infection with history of recent urinary tract infection. He was recently treated at his last hospitalization. Species was Morganella morganii. It was treated and sensitive to Rocephin. 5. Diabetes mellitus, type 2. 6. History of prostate cancer as well as liver cancer. He is presently on [facility]. PLAN: We will continue present supportive care. I will continue to aggressively diurese him. He received some metoprolol this morning and it corrected his elevated heart rate. I am not sure if he was actually taking his medications as prescribed, but will continue to monitor that closely. I did order a urine culture and I have started him on Rocephin. Will follow his cultures as they become available. I have changed him to a full admission. When he was first admitted the patient was a full code and I have discussed with him at length his code status, and he has decided to change his code to a do not resuscitate. We will continue to treat him aggressively and hopefully he can be discharged in the next 2 to 3 days with close followup with his primary care physician. It is to be noted that his catheter is frequently clogged up and it is recommended that have that catheter flushed several times a week to prevent frequent reinsertions of the catheter and to decrease the incidence of urinary tract infections. He will most likely need to go home on an oral antibiotic. Lab has been ordered for in the morning. Will follow him closely. #[id number] [facility]
[2019-09-12] MEDS ORDERED: SODIUM CHL 0.9% 50ML MIN-BAG+ 50 ML IVPB ONE (07:00)
[2019-09-12] MEDS ORDERED: cefTRIAXone SODIUM 1 GM VIAL ONE (07:00)
[2019-09-12] MEDS: INSULIN LISPRO 100 UNITS/ML PEN SUBCU SCH ×4 (07:29→21:18)
[2019-09-12] MEDS: MORPHINE ER 30 MG TAB PO PRN ×2 (07:42→16:49)
[2019-09-12] MEDS: metFORMIN HCL 500 MG TAB PO SCH ×2 (07:42→16:49)
[2019-09-12] MEDS: LOSARTAN POTASSIUM 25 MG TAB PO SCH (07:53)
[2019-09-12] MEDS: FUROSEMIDE INJ 40 MG/4 ML VIAL IV SCH ×2 (07:54→16:50)
[2019-09-12] MEDS: METOPROLOL TARTRATE 50 MG TAB PO SCH ×3 (07:54→20:35)
[2019-09-12] MEDS: APIXABAN 5 MG TAB PO SCH ×2 (07:54→20:35)
[2019-09-12] MEDS: FINASTERIDE 5 MG TAB PO SCH (07:54)
[2019-09-12] MEDS: BICALUTAMIDE 50 MG PO SCH (07:57)
[2019-09-12] MEDS: cefTRIAXone SODIUM 1 GM in SODIUM CHL 0.9% 50ML MIN-BAG+ 50 ML IVPB SCH (07:58)
[2019-09-12] MEDS: SODIUM CHLORIDE 0.9% (FLUSH) 10 ML SYG IV SCH ×2 (07:58→20:36)
--- NOTE | 2019-09-12 17:10 | PN ---
DATE: 09/12/19 SUPERVISING PHYSICIAN: Chucky Osuna M.D. SUBJECTIVE: The patient continues to be weak but his edema is looking a little better. He has been controlled in regard to his atrial fibrillation since the RVR episode with no recurrence. He is not complaining of any chest pain. OBJECTIVE: VITAL SIGNS: Temperature 97.1, heart rate 102, blood pressure 122/76, respiratory rate 22, Oxygen saturation 93% to 94% on nasal cannula at 3 liters. I&Os showing negative balance today of 1150, weight down from 110.4 kg to 109.9 kg. GENERAL: The patient is resting comfortably, he has finished eating lunch. CHEST: Lung sounds are fairly clear throughout, just diminished towards the bases. He does get tachypneic with any exertion. . CARDIAC: Irregular rate and rhythm showing atrial fibrillation on the monitor but controlled ventricular rate. GASTROINTESTINAL: Abdomen is soft, non-tender. Positive bowel sounds. EXTREMITIES: No cyanosis or clubbing. There is notable edema, 1+ extending from his feet to about midthigh. NEUROLOGIC: He is alert and oriented times three. LABORATORY: CBC shows a white count of 5,500 yesterday. Hemoglobin and hematocrit appear to be stable. Chemistries yesterday were showing to be near baseline levels. Again, he did have a total bilirubin that is elevated but showing to return to baseline at 2.1. Magnesium 2.0. Blood sugars have ranged between 104 and 177. MICROBIOLOGY: Urine cultures pending. RADIOLOGY: No additional radiographic studies today. ASSESSMENT: 1. Acute exacerbation of congestive heart failure with systolic and diastolic dysfunction. His ejection fraction is 35% to 40% per echocardiogram on 08/25/19. BNP is also 1360. 2. Edema to the lower extremities that extends up to the groin as well as ascites. He has been unable to take most of his medications. 3. Atrial fibrillation with rapid ventricular response. His heart rate from the upper 90s to the 140s. He is on metoprolol and it is clear whether he was taken his medications. 4. Urinary tract infection with history of recent urinary tract infection. He was recently treated at his last hospitalization. Species was Morganella morganii. It was treated and sensitive to Rocephin. 5. Diabetes mellitus, type 2. 6. Severe deconditioning from multiple hospitalizations and chronic illness requiring ongoing physical therapy. 6. History of prostate cancer as well as liver cancer. He is presently on [facility]. PLAN: We will continue with current plan of care at this point. Continue with diuresis. He is controlled on his heart rate. We will continue to monitor that closely. I did discuss with him the fact that he is severely deconditioned and will need long-term care home in efforts to get him back to his normal baseline levels and he is in agreement to care home placement once he is stable. He does show that he is severely weak when he gets up from the bedside to the chair. He is a DNR at this point. I would anticipate at least discharge probably by tomorrow, if not by Sunday if he continues to show good improvement and again, we can get him placed in a care home facility for ongoing physical therapy. We will continue to monitor his cultures and treat that as appropriate to sensitivity reports. Until we can transition him to oral medications and outpatient services, we will continue to monitor and treat as needed. #[id number] [facility]
[2019-09-12] MEDS: BENZONATATE PERLES 100 MG CAP PO SCH (20:34)
[2019-09-12] MEDS: QUEtiapine FUMARATE 25 MG TAB PO SCH (20:35)
[2019-09-12] MEDS: MELATONIN 3 MG TAB PO SCH (20:35)
[2019-09-13] MEDS: MORPHINE ER 30 MG TAB PO PRN ×3 (00:49→17:08)
[2019-09-13] MEDS ORDERED: SODIUM CHL 0.9% 50ML MIN-BAG+ 50 ML IVPB ONE (07:38)
[2019-09-13] MEDS ORDERED: cefTRIAXone SODIUM 1 GM VIAL ONE (07:39)
[2019-09-13] MEDS: INSULIN LISPRO 100 UNITS/ML PEN SUBCU SCH ×4 (08:47→21:21)
[2019-09-13] MEDS: BENZONATATE PERLES 100 MG CAP PO SCH ×3 (08:48→21:19)
[2019-09-13] MEDS: SODIUM CHLORIDE 0.9% (FLUSH) 10 ML SYG IV SCH ×2 (08:48→21:20)
[2019-09-13] MEDS: metFORMIN HCL 500 MG TAB PO SCH ×2 (08:48→17:09)
[2019-09-13] MEDS: METOPROLOL TARTRATE 50 MG TAB PO SCH ×2 (08:49→21:19)
[2019-09-13] MEDS: APIXABAN 5 MG TAB PO SCH ×2 (08:49→21:18)
[2019-09-13] MEDS: LOSARTAN POTASSIUM 25 MG TAB PO SCH (08:49)
[2019-09-13] MEDS: FINASTERIDE 5 MG TAB PO SCH (08:49)
[2019-09-13] MEDS: BICALUTAMIDE 50 MG PO SCH (08:51)
[2019-09-13] MEDS: cefTRIAXone SODIUM 1 GM in SODIUM CHL 0.9% 50ML MIN-BAG+ 50 ML IVPB SCH (08:51)
[2019-09-13] MEDS: FUROSEMIDE INJ 40 MG/4 ML VIAL IV SCH ×2 (08:52→17:09)
--- NOTE | 2019-09-13 17:41 | PN ---
DATE: 09/13/19 SUPERVISING PHYSICIAN: Chucky Osuna M.D. SUBJECTIVE: The patient notes that he is feeling better today. He is still responding well to diuresis. He is not complaining of chest pains, nausea or vomiting. He did have a physical therapy evaluation today that he is notably weak and could not fully participate with the evaluation. I did discuss with him that we are working to get him to a custodial unit as soon as they have a bed available at [facility] and she is in agreement to. OBJECTIVE: VITAL SIGNS: Temperature 97.4, pulse 106, blood pressure 115/76, respirations 18, satting 92 to 94% on nasal cannula at 3 liters. I's and O's are showing a negative balance today of 1140 with a total deficit since admission and diuresis of just a little under 7.5 liters. Weight is down from admission from 110.4 to 109.5. GENERAL: The patient appears to be in no acute distress. He is alert and resting comfortably. CHEST: Lung sounds remain clear today, just slightly diminished towards the bases. HEART: Irregular rate and rhythm, showing atrial fibrillation on the monitor with a controlled ventricular rate. ABDOMEN: Soft, non-tender. Positive bowel sounds. EXTREMITIES: Without any cyanosis or clubbing. Continuing to show 1 to 2+ pitting edema that extends from his feet to just above his knees today. NEUROLOGIC: He is alert and oriented times three. LABORATORY: Today shows sodium 133, potassium 3.5, BUN 25, creatinine 0.83. Blood sugars range between 112 to 150, calcium 8.2. Total bilirubin is down to 1.4 from 2.7. MICROBIOLOGY: Urine culture is pending. RADIOLOGY: No additional radiographic studies today. ASSESSMENT: 1. Acute exacerbation of congestive heart failure with systolic and diastolic dysfunction. His ejection fraction is 35% to 40% per echocardiogram on 08/25/19. BNP is also 1360. Patient responding well to diuresis. 2. Anasarca of the abdomen and lower extremities showing good response to diuresis. 3. Atrial fibrillation with rapid ventricular rate on admission and showing now controlled ventricular rate after metoprolol and continued medications. 4. Urinary tract infection with previous Morganella morganii having been treated with Rocephin which it was sensitive to, awaiting final culture results. 5. Diabetes mellitus, type 2. 6. Severe deconditioning from multiple hospitalizations and chronic illness requiring ongoing physical therapy. 7. History of prostate cancer as well as liver cancer. He is presently on [facility]. PLAN: Will continue with diuresis as he continues to show good response. He remains on antibiotic coverage awaiting culture results of the urine with Rocephin. He is on Eliquis for deep venous thrombosis prophylaxis. He is on sliding scale per protocol. He did have evaluation with CT today which demonstrated he was severely deconditioned as he was essentially only able to sit on the edge of the bed and not participate with any other activities. We are continuing to wait on placement at [facility] pending that referral for underlying severe deconditioning and required physical therapy. Until he can be transferred to outpatient management will continue to monitor and treat as needed. #[id number] [facility]
[2019-09-13] MEDS: MELATONIN 3 MG TAB PO SCH (21:19)
[2019-09-13] MEDS: QUEtiapine FUMARATE 25 MG TAB PO SCH (21:19)
[2019-09-13] MEDS: IV SET AND CAP CHANGE INJ INJ SCH (21:21)
[2019-09-14] MEDS: POTASSIUM CHLORIDE 20 MEQ TAB PO SCH (08:06)
[2019-09-14] MEDS: INSULIN LISPRO 100 UNITS/ML PEN SUBCU SCH ×4 (08:07→21:15)
[2019-09-14] MEDS: metFORMIN HCL 500 MG TAB PO SCH ×2 (08:07→15:48)
[2019-09-14] MEDS ORDERED: SODIUM CHL 0.9% 50ML MIN-BAG+ 50 ML IVPB ONE (08:27)
[2019-09-14] MEDS ORDERED: cefTRIAXone SODIUM 1 GM VIAL ONE (08:28)
[2019-09-14] MEDS: BICALUTAMIDE 50 MG PO SCH (08:35)
[2019-09-14] MEDS: FINASTERIDE 5 MG TAB PO SCH (08:37)
[2019-09-14] MEDS: APIXABAN 5 MG TAB PO SCH ×2 (08:38→20:21)
[2019-09-14] MEDS: BENZONATATE PERLES 100 MG CAP PO SCH ×3 (08:38→20:20)
[2019-09-14] MEDS: METOPROLOL TARTRATE 50 MG TAB PO SCH ×2 (08:38→20:20)
[2019-09-14] MEDS: LOSARTAN POTASSIUM 25 MG TAB PO SCH (08:38)
[2019-09-14] MEDS: FUROSEMIDE INJ 40 MG/4 ML VIAL IV SCH ×2 (08:39→15:48)
[2019-09-14] MEDS: cefTRIAXone SODIUM 1 GM in SODIUM CHL 0.9% 50ML MIN-BAG+ 50 ML IVPB SCH (08:39)
[2019-09-14] MEDS: SODIUM CHLORIDE 0.9% (FLUSH) 10 ML SYG IV SCH ×2 (08:40→20:21)
[2019-09-14] MEDS: MORPHINE ER 30 MG TAB PO PRN ×2 (09:26→19:01)
[2019-09-14] MEDS: NITROFURANTOIN MONOHYDRATE MAC 100 MG CAP PO SCH (15:48)
[2019-09-14] MEDS ORDERED: SODIUM CHLORIDE 0.9% 500ML 500 ML ONE (20:01)
[2019-09-14] MEDS ORDERED: METOPROLOL TARTRATE INJ 5 MG/5 ML VIAL IV ONE ×3 (20:02→21:06)
[2019-09-14] MEDS ORDERED: SODIUM CHLORIDE 0.9% 500ML 500 ML IVS ONE (20:03)
[2019-09-14] MEDS ORDERED: MAGNESIUM SULFATE PREMIX 2GM 2 GM in PREMIX BAG 1 BAG IVPB ONE (20:04)
[2019-09-14] MEDS ORDERED: MAGNESIUM SULFATE PREMIX 2GM 50 ML IVPB ONE (20:05)
[2019-09-14] MEDS: QUEtiapine FUMARATE 25 MG TAB PO SCH (20:20)
[2019-09-14] MEDS: MELATONIN 3 MG TAB PO SCH (20:20)
--- NOTE | 2019-09-14 20:20 | PN ---
DATE: 09/14/19 SUPERVISING PHYSICIAN: Chucky Osuna M.D. SUBJECTIVE: The patient is doing fairly well. He is just to get started with some rehab. He has not had any other complaints. He is still quite edematous to his legs but it is improved which is going to certainly limit his physical capabilities, but he continues to diurese well. We are still waiting on his final approval to go to [facility], which hopefully will be in the morning. OBJECTIVE: VITAL SIGNS: Temperature 98.3, pulse 97 to 102, blood pressure 107/74, respirations 18, satting 96% on 2 liters nasal cannula. I's and O's show a negative balance today of 1820. Weight is down now to 109.4 kg from 110.4 kg, although I am not sure how accurate the actual weights are. GENERAL: The patient is resting comfortably. Appears to be in no acute distress. He is alert. CHEST: Lung sounds are clear, just slightly diminished towards the bases. HEART: Slightly irregular rate and rhythm with atrial fibrillation on the monitor, but a controlled ventricular rate. ABDOMEN: Soft, non-tender. Positive bowel sounds with just a very small trace of edema below his umbilicus. EXTREMITIES: Still showing 1 to 2+ edema extending now fairly well just below the knee to his distal extremities. NEUROLOGIC: He is alert and oriented times three. LABORATORY: Sodium 133, potassium 3.2, BUN 20, creatinine 0.74. Blood sugars are ranging between 112 and 202. Magnesium is 1.7. MICROBIOLOGY: Final urine culture results showed a Staphylococcus species coagulation negative with final sensitivity showing sensitive to Macrobid, resistant to Oxacillin and Bactrim and sensitive to vancomycin, Tetracycline and Rifampin. ASSESSMENT: 1. Acute exacerbation of congestive heart failure with combined systolic and diastolic dysfunction with current ejection fraction noted in August of 2019 at 35% to 40% with the patient continuing to show good response to diuresis. 2. Anasarca from the umbilicus to the lower extremities due to #1 showing good response to diuresis. 3. Atrial fibrillation with rapid ventricular rate controlled now with metoprolol, stable. 4. Urinary tract infection secondary to coagulation negative Staphylococcus. The patient was started on oral antibiotics to include Macrobid based off sensitivity report. 5. Diabetes mellitus, type 2, stable. 6. Severe deconditioning from multiple hospitalizations and chronic illness requiring ongoing physical therapy and need for nursing home placement. 7. History of prostate cancer as well as liver cancer with the patient having presently being on [facility]. PLAN: Will continue current plan at this point with [facility]. He is on antibiotics now with Macrobid having been on Rocephin based off current sensitivity report. He remains on Eliquis for deep venous thrombosis prophylaxis. He is on sliding scale per insulin protocol. He was evaluated by Physical Therapy yesterday with a severe deconditioning with recommendations for nursing home placement. The referral to [facility] has been submitted. We are waiting on that final approval. Until we can transfer him to nursing home unit will continue to monitor and treat as needed. #[id number] [facility]
[2019-09-15] MEDS: POTASSIUM CHLORIDE 20 MEQ TAB PO SCH (07:45)
[2019-09-15] MEDS: MORPHINE ER 30 MG TAB PO PRN (07:46)
[2019-09-15] MEDS: metFORMIN HCL 500 MG TAB PO SCH (07:46)
[2019-09-15] MEDS: NITROFURANTOIN MONOHYDRATE MAC 100 MG CAP PO SCH (07:46)
[2019-09-15] MEDS: INSULIN LISPRO 100 UNITS/ML PEN SUBCU SCH ×2 (07:54→11:52)
[2019-09-15] MEDS: FINASTERIDE 5 MG TAB PO SCH (08:04)
[2019-09-15] MEDS: LOSARTAN POTASSIUM 25 MG TAB PO SCH (08:04)
[2019-09-15] MEDS: BENZONATATE PERLES 100 MG CAP PO SCH (08:04)
[2019-09-15] MEDS: FUROSEMIDE INJ 40 MG/4 ML VIAL IV SCH (08:05)
[2019-09-15] MEDS: METOPROLOL TARTRATE 50 MG TAB PO SCH (08:05)
[2019-09-15] MEDS: APIXABAN 5 MG TAB PO SCH (08:05)
[2019-09-15] MEDS: BICALUTAMIDE 50 MG PO SCH (08:05)
[2019-09-15] MEDS: SODIUM CHLORIDE 0.9% (FLUSH) 10 ML SYG IV SCH (08:06)
[2019-09-15] MEDS ORDERED: SPIRONOLACTONE 25 MG TAB PO SCH (09:46)
[2019-09-15 13:19] VITALS: BP 122/79; TEMP 97.3; O2SAT 93
[2019-09-15] MEDS ORDERED: FUROSEMIDE 40 MG TAB PO SCH (17:00)
--- NOTE | 2019-09-15 21:02 | DS ---
SUPERVISING PHYSICIAN: Ke Benjamin M.D. ADMISSION DIAGNOSIS: 1. Acute exacerbation of congestive heart failure. 2. Edema of the lower extremities. 3. Atrial fibrillation with rapid ventricular response. 4. History of urinary tract infections. 5. Diabetes mellitus type 2. 6. History of prostate and liver cancer. DISCHARGE DIAGNOSIS: 1. Acute exacerbation of congestive heart failure. 2. Edema of the lower extremities, improved. 3. Atrial fibrillation with rapid ventricular response, rate now controlled. 4. Coagulase negative Staphylococcal urinary tract infection. 5. Diabetes mellitus type 2. 6. History of prostate and liver cancer. HOSPITAL COURSE: This is a 74 year-old male patient who has a history of liver and prostate cancer, who is on hospice with [facility]. The patient came for lower extremity swelling which had been going on for approximately a week. The patient does have a known cardiomyopathy with an ejection fraction of 35 to 40%. He had actually been in the hospital a week or so prior for atrial fibrillation with rapid ventricular response. He had a Quinonez catheter in place which had actually clogged off as well. Apparently he stopped taking his medications due to the catheter being clogged off. He also not only had the lower extremity swelling but decreased mobility. He states that since his cancer came back he has not been able to get up that much. Therefore the patient was admitted for acute exacerbation of congestive heart failure. He was found to also have Staphylococcus in his urinary tract. It was identified as coag negative Staphylococcus. The sensitivity was reviewed and the patient was appropriately placed on Nitrofurantoin. He was aggressively diuresed with Lasix. Strength level still is pretty diminished. It was decided that he would benefit more from being in a senior care due to decreased mobility and inability to care for himself. Therefore on 09/15/19 the patient was discharged to [facility] in stable condition. His medications were continued and new medications were scheduled Lasix, Aldactone as well as Nitrofurantoin for his urinary tract infection. His diet will be as tolerated. Activity is increase as tolerated. He will need to followup with his primary care physician in 1 to 2 weeks after discharge as well. #[id number] [facility]
== END 2019-09-15 14:10 | DRG 292 ==
LOC: ER 17:10 → MS 19:45 → OBSVTOIN 09-11 14:08
PROVIDERS: ADMIT Nurse Practitioner Acute Care; ATTEND Nurse Practitioner
DX: I11.0 Hypertensive heart disease with heart failure (principal); R18.8 Other ascites; C22.9 Malignant neoplasm of liver, not specified as primary or secondary; N39.0 Urinary tract infection, site not specified; I50.43 Acute on chronic combined systolic (congestive) and diastolic (congestive) heart failure; J44.9 Chronic obstructive pulmonary disease, unspecified; E11.9 Type 2 diabetes mellitus without complications; K21.9 Gastro-esophageal reflux disease without esophagitis; I87.2 Venous insufficiency (chronic) (peripheral); R33.9 Retention of urine, unspecified; N40.1 Benign prostatic hyperplasia with lower urinary tract symptoms; C61 Malignant neoplasm of prostate; I42.9 Cardiomyopathy, unspecified; I48.91 Unspecified atrial fibrillation; T83.091A Other mechanical complication of indwelling urethral catheter, initial encounter; B95.7 Other staphylococcus as the cause of diseases classified elsewhere; F17.210 Nicotine dependence, cigarettes, uncomplicated; Z79.84 Long term (current) use of oral hypoglycemic drugs; Z79.01 Long term (current) use of anticoagulants; Z85.05 Personal history of malignant neoplasm of liver; Z87.440 Personal history of urinary (tract) infections